=== PATIENT | male | born 1975 | race Caucasian/White ===

== ENCOUNTER 2020-12-17 12:59 | Emergency (ER) | payer OTHER ==
[~2020-12-17] VITALS: Ht 172.7 cm; Wt 97.5 kg
[~2020-12-17 12:59] MED LIST: PRILOSEC OTC20 MG PO
[2020-12-17] MEDS ORDERED: ROXICODONE5 MG PO (13:12)
[2020-12-17] MEDS ORDERED: VALSARTAN40 MG PO (13:12)
[2020-12-17] MEDS ORDERED: VIGAMOX3 M1 LT. EYE (13:36)
[2020-12-17 13:49] VITALS: BP 144/70
== END 2020-12-17 13:50 | disposition home or self-care (01) ==
LOC: M.ERS 12:59
DX: T15.02XA Foreign body in cornea, left eye, initial encounter (principal); K21.9 Gastro-esophageal reflux disease without esophagitis; Z90.49 Acquired absence of other specified parts of digestive tract; Z98.890 Other specified postprocedural states; Z88.5 Allergy status to narcotic agent; Z79.899 Other long term (current) drug therapy; X58.XXXA Exposure to other specified factors, initial encounter; Y93.89 Activity, other specified; Y92.89 Other specified places as the place of occurrence of the external cause; Y99.8 Other external cause status